=== PATIENT | female | born 1990 | race Caucasian/White ===

== ENCOUNTER 2023-03-27 09:43 | Outpatient (CLI) | payer BC ==
[2023-03-27] MEDS ORDERED: Iopamidol 300 61% 100 ML VIAL FS ONE (09:53)
== END 2023-03-27 09:44 | disposition home or self-care (01) ==
LOC: CSHCT 09:43
PROVIDERS: ATTEND Physician Assistant Medical
DX: R10.33 Periumbilical pain (principal); N94.89 Other specified conditions associated with female genital organs and menstrual cycle
CPT/HCPCS: 74177; Q9967